=== PATIENT | female | born 1935 | race Caucasian/White ===

== ENCOUNTER 2018-07-16 23:30 | Emergency (ER) | payer OTHER ==
[~2018-07-16] VITALS: Ht 157.5 cm; Wt 65.8 kg
[~2018-07-16 23:30] MED LIST: AMBIEN10 MG PO; CARVEDILOL3.125 MG PO; ISORDIL5 MG PO; NOVOLOG MIX 70/33 ML SQ; PLAVIX75 MG PO; PLETAL50 MG PO; PRILOSEC20 MG PO; SYNTHROID150 MCG PO
[2018-07-16] MEDS ORDERED: DIGOX250 MCG (23:50)
[2018-07-16] MEDS ORDERED: COUMADIN2 MG (23:50)
== END 2018-07-17 20:30 | disposition home or self-care (01) ==
LOC: ER 23:30
DX: K29.70 Gastritis, unspecified, without bleeding (principal); J45.998 Other asthma; R07.89 Other chest pain

== ENCOUNTER 2018-09-15 10:51 | Emergency (ER) | payer OTHER ==
[~2018-09-15] VITALS: Ht 157.5 cm; Wt 65.8 kg
[~2018-09-15 10:51] MED LIST changes: +COUMADIN2 MG; +DIGOX250 MCG
[2018-09-15] MEDS ORDERED: DUI500 PO (15:58)
== END 2018-09-15 16:13 | disposition home or self-care (01) ==
LOC: ER 10:51
DX: L03.116 Cellulitis of left lower limb (principal)

== ENCOUNTER 2018-09-21 09:41 | Emergency (ER) | payer OTHER ==
[~2018-09-21] VITALS: Ht 154.9 cm; Wt 65.8 kg
[~2018-09-21 09:41] MED LIST changes: +DUI500 PO
[2018-09-21] MEDS ORDERED: ESTAZOLAM1 MG (10:11)
== END 2018-09-21 17:07 | disposition home or self-care (01) ==
LOC: ER 09:41
DX: L03.116 Cellulitis of left lower limb (principal); L03.115 Cellulitis of right lower limb; I10 Essential (primary) hypertension